=== PATIENT | female | born 1965 | race Caucasian/White ===

== ENCOUNTER 2020-05-26 13:24 | Emergency (ER) | payer OTHER ==
[~2020-05-26] VITALS: Ht 165.1 cm; Wt 127.0 kg
[2020-05-26 13:40] VITALS: BP 139/46
--- NOTE | 2020-05-26 13:51 | NUR ---
PT AMBULATED TO BED 9 WITH CANE
--- NOTE | 2020-05-26 13:51 | NUR ---
Srinath naik in [facility] - 05/26/20 at 1412 by [email or web address] PT AMBULATED TO BED 9 WITH WALKER.
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
--- NOTE | 2020-05-26 14:09 | NUR ---
JAYME SU AT BEDSIDE
[2020-05-26] MEDS ORDERED: KETOROLAC 60 MG/2 ML VIAL IM ONE (14:15)
[2020-05-26] MEDS ORDERED: ACET-8386 PO (14:21)
[2020-05-26] MEDS ORDERED: IBUP-2213 PO (14:21)
[2020-05-26 14:45] VITALS: BP 139/46
--- NOTE | 2020-05-26 14:45 | NUR ---
Patient discharged with v/s stable. Written and verbal after care instructions given and explained. Patient alert, oriented and verbalized understanding of instructions. Ambulatory with steady gait. All questions addressed prior to discharge. ID band removed. Patient advised to follow up with PMD. Rx of HYDROCODONE/ACETAMINOPHEN 5-325MG AND IBUPROFEN given. Patient educated on indication of medication including possible reaction and side effects. Opportunity to ask questions provided and answered.
== END 2020-05-26 14:45 | disposition home or self-care (01) ==
LOC: MED 13:24
DX: M54.31 Sciatica, right side (principal); E11.9 Type 2 diabetes mellitus without complications; Z98.890 Other specified postprocedural states
CPT/HCPCS: 96372; 99283; J1885

== ENCOUNTER 2021-12-20 08:25 | Emergency (ER) | payer OTHER ==
[~2021-12-20] VITALS: Ht 162.6 cm; Wt 114.3 kg
[~2021-12-20 08:25] MED LIST: ACET-8386 PO; IBUP-2213 PO
[2021-12-20 08:37] VITALS: BP 145/66
--- NOTE | 2021-12-20 08:44 | NUR ---
Srinath naik in ED - 12/20/21 at 0844 by [email or web address] PT AMBULATED TO BED 2 WITH STEADY GAIT
--- NOTE | 2021-12-20 08:44 | NUR ---
Patient ambulated with steady gait to bed 2.
--- NOTE | 2021-12-20 08:49 | NUR ---
DR NARVAEZ AT BEDSIDE FOR EVAL
[2021-12-20] MEDS ORDERED: MORPHINE SULFATE 4 MG/ML SYR IM ONE (08:55)
[2021-12-20] MEDS ORDERED: KETOROLAC 60 MG/2 ML VIAL IM ONE (08:55)
--- NOTE | 2021-12-20 09:03 | NUR ---
56 Y/O FEMALE BIB SELF C/O RIGHT SIDED LOW BACK PAIN "SHOOTING" THAT INCREASED 4 DAYS AGO AND WORSENED THIS AM. TOOK TYLENOL FOR PAIN WITH NO RELIEF, PER PT SHE HAS SCIATICA AND IS GOING TO HAVE SURGERY FOR A HERNIATED DISK NEXT MONTH. FULL ROM NOTED OF THE EXTREMITIES pmh: back sx for herniated disk nka med: tylenol
--- NOTE | 2021-12-20 09:39 | NUR ---
The patient's care was reviewed and supervised by Zandra Gore RN.
--- NOTE | 2021-12-20 09:39 | NUR ---
Patient discharged with v/s stable. Written and verbal after care instructions given and explained. Patient verbalized understanding. Ambulatory with steady gait. All questions addressed prior to discharge. Advised to follow up with PMD.
== END 2021-12-20 09:39 | disposition home or self-care (01) ==
LOC: MED 08:25
DX: M54.41 Lumbago with sciatica, right side (principal)
CPT/HCPCS: 96372; 99284; J1885; J2270

== ENCOUNTER 2021-12-24 08:43 | Emergency (ER) | payer OTHER ==
[~2021-12-24] VITALS: Ht 162.6 cm; Wt 113.4 kg
[2021-12-24 08:59] VITALS: BP 147/71
[2021-12-24] MEDS ORDERED: LIDOCAINE 5% 1 EA PATCH TP SCH (09:00)
--- NOTE | 2021-12-24 10:10 | NUR ---
56y/o female presents to ED with worsening sciatica pain x1week. Pt reports being seen here in ED on 12/20/2021 for same symptoms, pain has been a constant 10/10 stabbing like pain that starts in the right lower back and radiates down right leg. Pt reports taking [place] with no relief.
[2021-12-24] MEDS ORDERED: CYCLOBENZAPRINE 10 MG TAB PO ONE (10:25)
[2021-12-24] MEDS ORDERED: KETOROLAC 30 MG/ML VIAL IM ONE (10:25)
[2021-12-24] MEDS ORDERED: CYCL-711 PO (11:52)
[2021-12-24 12:00] VITALS: BP 129/79
--- NOTE | 2021-12-24 12:00 | NUR ---
Patient discharged with v/s stable. Written and verbal after care instructions about Sciatica given and explained. Patient alert, oriented and verbalized understanding of instructions. Ambulatory with steady gait. All questions addressed prior to discharge. ID band removed. Patient advised to follow up with PMD. Rx of Flexeril given. Patient educated on indication of medication including possible reaction and side effects. Opportunity to ask questions provided and answered.
[2021-12-25] MEDS ORDERED: LIDOCAINE 5% 1 EA PATCH TP SCH (09:00)
== END 2021-12-24 12:00 | disposition home or self-care (01) ==
LOC: MED 08:43
DX: M54.31 Sciatica, right side (principal); Z79.899 Other long term (current) drug therapy
CPT/HCPCS: 96372; 99283; J1885

== ENCOUNTER 2022-04-09 11:10 | Emergency (ER) | payer OTHER ==
[~2022-04-09] VITALS: Ht 162.6 cm; Wt 106.6 kg
[~2022-04-09 11:10] MED LIST changes: -ACET-8386 PO; +ACET-8905 PO; +CYCL-711 PO
[2022-04-09 11:18] VITALS: BP 119/49
--- NOTE | 2022-04-09 11:30 | NUR ---
56/F PRESENTS TO ED WITH C/O GROIN PAIN, STATES RECENT SURGERY FOR SCIATIC NERVE AND STATES PAIN INTERMITTENTLY SINCE. DENIES RECENT INJURY OR TRAUMA.
[2022-04-09] MEDS ORDERED: DICL20GE TP (14:22)
--- NOTE | 2022-04-09 15:06 | NUR ---
LEFT W/O PAPERWORK, VOLTAREN GEL SENT TO [facility]ARM[facility] IN [place]
== END 2022-04-09 15:06 | disposition home or self-care (01) ==
LOC: MED 11:10
DX: M25.552 Pain in left hip (principal); R10.32 Left lower quadrant pain; Z79.899 Other long term (current) drug therapy
CPT/HCPCS: 73502; 99283

== ENCOUNTER 2022-11-16 22:02 | Emergency (ER) | payer OTHER ==
[~2022-11-16] VITALS: Ht 162.6 cm; Wt 118.4 kg
[~2022-11-16 22:02] MED LIST changes: +DICL20GE TP
[2022-11-16 22:06] VITALS: BP 150/79; PULSE 77; RESP 20; TEMP 97.4; O2SAT 98
[2022-11-16] MEDS ORDERED: methocarbamoL 500 MG TAB PO STA (23:08)
[2022-11-16] MEDS ORDERED: LIDOCAINE 5% 1 EA PATCH TP ONE (23:10)
[2022-11-16] MEDS ORDERED: KETOROLAC 30 MG/ML VIAL IM ONE (23:10)
[2022-11-17] MEDS ORDERED: LID5T TP (00:01)
[2022-11-17] MEDS ORDERED: METH-1681 PO (00:01)
[2022-11-17] MEDS ORDERED: IBUP-2213 PO (00:01)
[2022-11-17 00:05] VITALS: BP 150/79; PULSE 77; RESP 20; TEMP 97.4; O2SAT 98
== END 2022-11-17 00:05 | disposition home or self-care (01) ==
LOC: MED 22:02
DX: G89.29 Other chronic pain (principal); M54.6 Pain in thoracic spine; E11.9 Type 2 diabetes mellitus without complications; Z98.890 Other specified postprocedural states; Z79.899 Other long term (current) drug therapy; Z79.1 Long term (current) use of non-steroidal anti-inflammatories (NSAID)
CPT/HCPCS: 96372; 99283; J1885